=== PATIENT | female | born 1990 | race Caucasian/White ===

== ENCOUNTER 2017-05-30 09:57 | Outpatient (CLI) | payer MEDICAID ==
[~2017-05-30] VITALS: Ht 160 cm; Wt 111.8 kg
[~2017-05-30 09:57] MED LIST: BACTRIM DS 8001 TAB PO; FLEXERIL 1010 MG/TAB PO; NO HOME MEDICATIONS
[2017-05-30 10:11] VITALS: BP 129/79; PULSE 111; TEMP 98.9
[2017-05-30] MEDS ORDERED: FIORICET 325 MG1 TA1 PO (10:16)
[2017-05-30] MEDS ORDERED: PROVENTIL0.09 MG/A1 IH (10:16)
[2017-05-30] MEDS ORDERED: PRENATAL MVI (10:17)
[2017-05-30] MEDS ORDERED: ZANTAC 150MG T150 MG PO (10:17)
[2017-05-30 10:28] VITALS: BP 134/82; PULSE 95
== END 2017-05-30 10:40 | disposition home or self-care (01) ==
LOC: LDRO 09:57 → LDR 10:00 → LDRO 10:40
DX: Z34.03 Encounter for supervision of normal first pregnancy, third trimester (principal); Z3A.38 38 weeks gestation of pregnancy
CPT/HCPCS: OP

== ENCOUNTER 2017-06-09 15:44 | Outpatient (CLI) | payer MEDICAID ==
[~2017-06-09] VITALS: Ht 160 cm; Wt 112.3 kg
[~2017-06-09 15:44] MED LIST changes: +FIORICET 325 MG1 TA1 PO; +PRENATAL MVI; +PROVENTIL0.09 MG/A1 IH; +ZANTAC 150MG T150 MG PO
[2017-06-09 16:04] VITALS: BP 126/76; PULSE 113; TEMP 98.4
[2017-06-09 17:00] VITALS: BP 119/75; PULSE 101
[2017-06-10] MEDS ORDERED: PERCOCET 325 MG1 TA2 PO (03:47)
[2017-06-10] MEDS ORDERED: MOTRIN 800800 MG/TAB PO (03:47)
== END 2017-06-09 17:10 | disposition home or self-care (01) ==
LOC: LDRO 15:44 → LDR 15:55 → LDRO 17:10
DX: O99.89 Other specified diseases and conditions complicating pregnancy, childbirth and the puerperium (principal); M62.830 Muscle spasm of back; Z3A.39 39 weeks gestation of pregnancy
CPT/HCPCS: OP

== ENCOUNTER 2017-06-09 23:24 | Inpatient (IN) | payer MEDICAID ==
[~2017-06-09] VITALS: Ht 160 cm; Wt 112.3 kg
[2017-06-10] VITALS (35 sets, daily range): BP systolic 114–157; BP diastolic 54–95; PULSE 53–109; TEMP 97.8–98.5
[2017-06-10 00:35] LABS: BASO % 0.3 % (0.0-2.0); EOS # 0.1 (0.0-0.7); GRAN # 8.5 (1.4-6.5); GRAN % 71.1 % (42.2-75.2); HEMOGLOBIN 12.1 g/dl (12.5-16.0); LYMPH # 2.5 (1.2-3.4); LYMPH % 21.2 % (20.0-51.0); MEAN CELL VOLUME 88 fl (80.0-100.0); MEAN CORPUSCULAR HEMOGLOBIN 31 pg (27.0-31.0); MEAN CORPUSCULAR HGB CONC 35 g/dl (33.0-37.0); MEAN PLATELET VOLUME 11.3 fl (7.4-10.4); MONO # 0.7 (0.1-0.6); MONO % 5.9 % (1.7-9.3); PLATELET COUNT 204 K/mm3 (130-400); RED BLOOD COUNT 3.93 M/mm3 (4.10-5.30); REDCELL DISTRIBUTION WIDTH-CV 14.2 % (11.5-14.5)
[2017-06-10 00:42] LABS: HEMATOCRIT 34.4 % (37.0-47.0)
[2017-06-10] MEDS ORDERED: PERCOCET 325 MG1 TA2 PO (03:47)
[2017-06-10] MEDS ORDERED: MOTRIN 800800 MG/TAB PO (03:47)
[2017-06-11 00:59] VITALS: BP 135/78; PULSE 87; TEMP 98.1
[2017-06-11 05:43] VITALS: BP 114/67; PULSE 78; TEMP 98.2
[2017-06-11 07:40] VITALS: BP 130/75; PULSE 83; TEMP 97.8
[2017-06-11 17:25] VITALS: BP 123/75; PULSE 86; TEMP 98.5
[2017-06-11 20:00] VITALS: BP 144/75; PULSE 89; TEMP 98.5
[2017-06-12 08:00] VITALS: BP 112/58; PULSE 74; TEMP 98.3
== END 2017-06-12 11:40 | disposition home or self-care (01) | DRG 775 ==
LOC: LDRO 23:24 → OB 23:45 → LDR 23:45 → OB 06-10 11:00
PROVIDERS: Obstetrics & Gynecology
PROC: 10E0XZZ Delivery of Products of Conception, External Approach (ICD-10-PCS; principal; 2017-06-10)
PROC: 0KQM0ZZ Repair Perineum Muscle, Open Approach (ICD-10-PCS; 2017-06-10)
DX: O99.824 Streptococcus B carrier state complicating childbirth (principal); O99.334 Smoking (tobacco) complicating childbirth; F17.210 Nicotine dependence, cigarettes, uncomplicated; O36.5930 Maternal care for other known or suspected poor fetal growth, third trimester, not applicable or unspecified; O70.1 Second degree perineal laceration during delivery; Z3A.39 39 weeks gestation of pregnancy; Z37.0 Single live birth
CPT/HCPCS: J0595; J2590; J3105; J3370; J7050; J7120

== ENCOUNTER 2017-06-16 23:33 | Emergency (ER) | payer MEDICAID ==
[~2017-06-16] VITALS: Ht 160 cm; Wt 107.7 kg
[~2017-06-16 23:33] MED LIST changes: +MOTRIN 800800 MG/TAB PO; +PERCOCET 325 MG1 TA2 PO
[2017-06-16 23:35] VITALS: TEMP 98.6
[2017-06-17] MEDS ORDERED: BACTRIM DS 8001 TAB PO (00:23)
[2017-06-17 00:33] VITALS: BP 136/80; PULSE 80
== END 2017-06-17 00:36 | disposition home or self-care (01) ==
LOC: COL.ER 23:33
DX: O99.73 Diseases of the skin and subcutaneous tissue complicating the puerperium (principal); L98.8 Other specified disorders of the skin and subcutaneous tissue; O99.335 Smoking (tobacco) complicating the puerperium; F17.210 Nicotine dependence, cigarettes, uncomplicated

== ENCOUNTER 2017-07-19 15:58 | Emergency (ER) | payer MEDICAID ==
[~2017-07-19] VITALS: Ht 160 cm; Wt 103.2 kg
[2017-07-19 16:01] VITALS: BP 121/75; TEMP 99.5
[2017-07-19 16:59] LABS: BASO # 0.1 (0.0-0.2); BASO % 0.6 % (0.0-2.0); EOS # 0.4 (0.0-0.7); EOS % 3.9 % (0-4.0); GRAN # 5.4 (1.4-6.5); GRAN % 60.6 % (42.2-75.2); HEMATOCRIT 39.8 % (37.0-47.0); HEMOGLOBIN 13.2 g/dl (12.5-16.0); LYMPH # 2.7 (1.2-3.4); LYMPH % 29.6 % (20.0-51.0); MEAN CELL VOLUME 88 fl (80.0-100.0); MEAN CORPUSCULAR HEMOGLOBIN 29 pg (27.0-31.0); MEAN CORPUSCULAR HGB CONC 33 g/dl (33.0-37.0); MEAN PLATELET VOLUME 10.5 fl (7.4-10.4); MONO # 0.5 (0.1-0.6); MONO % 5.1 % (1.7-9.3); PLATELET COUNT 271 K/mm3 (130-400); RED BLOOD COUNT 4.55 M/mm3 (4.10-5.30); REDCELL DISTRIBUTION WIDTH-CV 13.2 % (11.5-14.5)
[2017-07-19] MEDS ORDERED: XARELTO15 MG PO (17:32)
[2017-07-19] MEDS ORDERED: TYLENOL W/COD1 UDTAB PO (17:43)
[2017-07-19 17:45] VITALS: PULSE 92
== END 2017-07-19 17:47 | disposition home or self-care (01) ==
LOC: COL.ER 15:58
PROVIDERS: Emergency Medicine
DX: I82.401 Acute embolism and thrombosis of unspecified deep veins of right lower extremity (principal); J45.909 Unspecified asthma, uncomplicated; F17.210 Nicotine dependence, cigarettes, uncomplicated
CPT/HCPCS: J1650

== ENCOUNTER 2018-07-19 06:50 | Inpatient (IN) | payer MEDICAID ==
[~2018-07-19] VITALS: Ht 160 cm; Wt 114.5 kg
[2018-07-19] VITALS (38 sets, daily range): BP systolic 113–174; BP diastolic 57–90; PULSE 48–107; TEMP 97.4–98.6
[~2018-07-19 06:50] MED LIST changes: +TYLENOL W/COD1 UDTAB PO; +XARELTO15 MG PO
[2018-07-19] MEDS ORDERED: [UNRECOGNIZED DRUG - CODE] (07:21)
[2018-07-19 08:09] LABS: BASO % 0.3 % (0.0-2.0); EOS # 0.2 (0.0-0.7); EOS % 1.7 % (0-4.0); GRAN # 7.6 (1.4-6.5); GRAN % 69.8 % (42.2-75.2); HEMOGLOBIN 12.3 g/dl (12.5-16.0); LYMPH # 2.4 (1.2-3.4); LYMPH % 21.6 % (20.0-51.0); MEAN CELL VOLUME 92 fl (80.0-100.0); MEAN CORPUSCULAR HEMOGLOBIN 31 pg (27.0-31.0); MEAN CORPUSCULAR HGB CONC 34 g/dl (33.0-37.0); MONO # 0.7 (0.1-0.6); PLATELET COUNT 195 K/mm3 (130-400); RED BLOOD COUNT 3.98 M/mm3 (4.10-5.30); REDCELL DISTRIBUTION WIDTH-CV 14.7 % (11.5-14.5)
[2018-07-19 08:10] LABS: HEMATOCRIT 36.6 % (37.0-47.0)
[2018-07-19 08:19] LABS: TRICYCLIC ANTIDEPRESS URINE NEGATIVE
[2018-07-19] MEDS ORDERED: PERCOCET 325 MG1 TA2 PO (08:23)
[2018-07-19] MEDS ORDERED: MOTRIN 800800 MG/TAB PO (08:23)
[2018-07-20 01:00] VITALS: BP 108/60; PULSE 76; TEMP 97.6
[2018-07-20 05:30] VITALS: BP 112/91; PULSE 87; TEMP 97.6
[2018-07-20 07:30] VITALS: BP 112/52; PULSE 77; TEMP 97.6
[2018-07-20] MEDS ORDERED: XARELTO20 MG PO (12:33)
[2018-07-20 16:30] VITALS: BP 112/55; PULSE 91; TEMP 97.9
[2018-07-20 20:15] VITALS: BP 130/79; PULSE 95; TEMP 97.6
[2018-07-21 08:15] VITALS: BP 125/78; PULSE 88; TEMP 97.9
[2018-07-22] MEDS ORDERED: BACTRIM DS 8001 TAB PO (13:16)
== END 2018-07-21 13:45 | disposition home or self-care (01) | DRG 775 ==
LOC: LDR 06:50 → OB 06:50 → LDR 10:48 → OB 17:00
PROVIDERS: Obstetrics & Gynecology
PROC: 3E033VJ Introduction of Other Hormone into Peripheral Vein, Percutaneous Approach (ICD-10-PCS; principal; 2018-07-19)
PROC: 10E0XZZ Delivery of Products of Conception, External Approach (ICD-10-PCS; 2018-07-19)
PROC: 0KQM0ZZ Repair Perineum Muscle, Open Approach (ICD-10-PCS; 2018-07-19)
DX: O75.89 Other specified complications of labor and delivery (principal); Z86.718 Personal history of other venous thrombosis and embolism; O99.214 Obesity complicating childbirth; E66.9 Obesity, unspecified; Z3A.39 39 weeks gestation of pregnancy; Z37.0 Single live birth; O26.893 Other specified pregnancy related conditions, third trimester; J45.909 Unspecified asthma, uncomplicated; O99.334 Smoking (tobacco) complicating childbirth; F17.210 Nicotine dependence, cigarettes, uncomplicated; O70.1 Second degree perineal laceration during delivery
CPT/HCPCS: J2590; J7120

== ENCOUNTER 2018-07-22 11:24 | Emergency (ER) | payer MEDICAID ==
[~2018-07-22] VITALS: Ht 160 cm; Wt 114.5 kg
[~2018-07-22 11:24] MED LIST changes: +XARELTO20 MG PO; +[UNRECOGNIZED DRUG - CODE]
[2018-07-22 11:27] VITALS: TEMP 100.3
[2018-07-22 11:58] LABS: BASO % 0.4 % (0.0-2.0); EOS # 0.1 (0.0-0.7); EOS % 1.7 % (0-4.0); GRAN % 82.1 % (42.2-75.2); HEMOGLOBIN 11.4 g/dl (12.5-16.0); LYMPH # 0.9 (1.2-3.4); MEAN CELL VOLUME 91 fl (80.0-100.0); MEAN CORPUSCULAR HEMOGLOBIN 32 pg (27.0-31.0); MEAN CORPUSCULAR HGB CONC 35 g/dl (33.0-37.0); MEAN PLATELET VOLUME 10.9 fl (7.4-10.4); MONO # 0.4 (0.1-0.6); MONO % 4.3 % (1.7-9.3); PLATELET COUNT 154 K/mm3 (130-400); REDCELL DISTRIBUTION WIDTH-CV 14.6 % (11.5-14.5)
[2018-07-22 12:01] LABS: HEMATOCRIT 32.9 % (37.0-47.0)
[2018-07-22 12:04] LABS: ALBUMIN 3.1 gm/dL (3.5-5.0); BILIRUBIN,TOTAL 0.4 mg/dL (0.0-1.0); CALCIUM 10.1 mg/dL (8.4-10.2); CREATININE, serum 0.57 mg/dL (0.52-1.25); TOTAL PROTEIN 6.4 gm/dL (6.4-8.2)
[2018-07-22 12:35] LABS: COLLECTION METHOD CLEAN CATCH
[2018-07-22 12:47] LABS: MUCOUS Present /lpf; PH 6 (5-8); SQUAMOUS EPITHELIAL 0-2 /hpf; URINE APPEARANCE Hazy; URINE BACTERIA Moderate /hpf; URINE BILIRUBIN Negative (NEGATIVE); URINE BLOOD 2+ (NEGATIVE); URINE COLOR Yellow; URINE GLUCOSE Negative (NEGATIVE); URINE KETONE Negative (NEGATIVE); URINE LEUKOCYTE ESTERASE 3+ (NEGATIVE); URINE NITRATE Positive (NEGATIVE); URINE PROTEIN(semi-quant) Negative (NEGATIVE); URINE RBC 20-50 /hpf; URINE UROBILINOGEN Negative (NEGATIVE)
[2018-07-22] MEDS ORDERED: BACTRIM DS 8001 TAB PO (13:16)
[2018-07-22 13:53] VITALS: BP 138/72; PULSE 94
== END 2018-07-22 13:53 | disposition home or self-care (01) ==
LOC: COL.ER 11:24
PROVIDERS: Emergency Medicine
DX: N39.0 Urinary tract infection, site not specified (principal); J45.909 Unspecified asthma, uncomplicated; Z86.718 Personal history of other venous thrombosis and embolism
CPT/HCPCS: J0696; J7030

== ENCOUNTER 2023-02-02 18:51 | Emergency (ER) | payer OTHER ==
[~2023-02-02] VITALS: Ht 160 cm; Wt 113.6 kg
[2023-02-02 19:03] VITALS: BP 134/81; TEMP 98.6
[2023-02-02] MEDS ORDERED: PREDNISONE20 MG PO (20:05)
[2023-02-02 20:08] VITALS: PULSE 87
== END 2023-02-02 20:17 | disposition home or self-care (01) ==
LOC: COL.ER 18:51
DX: M54.2 Cervicalgia (principal); R05.9 Cough, unspecified; F17.200 Nicotine dependence, unspecified, uncomplicated; Z28.310 Unvaccinated for COVID-19
CPT/HCPCS: J1885; J7512